=== PATIENT | male | born 1945 | race Caucasian/White ===

== ENCOUNTER 2016-12-16 13:03 | Inpatient (IN) ==
[2016-12-16] MEDS ORDERED: Aspirin 325 MG TABLET PO ONE (13:11)
--- NOTE | 2016-12-16 13:14 | Emergency Department Note ---
Disposition Clinical Impression: NSTEMI, initial episode of care, Dizziness Disposition: Admitted As Inpatient Condition: Fair Time of Disposition: 14:20 General Adult HPI - General Chief complaint: ED Arrhythmia/Palpitations Stated complaint: vertigo/afib/elevated Trop Time Seen by Provider: 12/16/16 13:10 Source: patient Mode of arrival: EMS Limitations: no limitations Nursing Notes Reviewed: Yes Vital Signs Reviewed: Yes - History of Present Illness HPI Narrative: 71-year-old male with history of hypertension, hyperlipidemia, diabetes, arrives to [facility] emergency department complaining of vertigo-like symptoms that have been ongoing for roughly 1 week. The patient states this is intermittent. The patient states he has had a history of this in the past. The patient denies any chest pain but does admit to some dyspnea on exertion. The patient is a [facility] patient and went to the urgent care at the [facility] earlier today where he was evaluated. The patient received a head CT which revealed no acute findings but there were some old lacunar infarcts that were noted as well as her sinus disease. In addition the patient had a cardiac workup which revealed an elevated troponin. The patient again continues to deny any chest pain but does admit to dyspnea on exertion. The patient is resting comfortably in the bed at this time. He was not given any aspirin today. We will dose him with a 325 mg dose aspirin. We will speak to cardiology as well. EKG from the [facility] demonstrates atrial fibrillation without any ST elevation or ST depression but we will repeat this as well. Patient agrees to plan. Onset (ago): week(s) (1) Pain Scale: 0 Improves with: nothing Worsens with: movement (of head back and forth as well as sitting up and laying down.) Associated symptoms: Reports: shortness of breath Treatments Prior to Arrival: none - Related Data Allergies Allergy/AdvReac Type Severity Reaction Status Date / Time No Known Allergies Allergy Verified 12/16/16 13:07 All systems ED: reviewed and negative except as stated. Constitutional: Denies: fever, chills, weakness, weight change Cardiovascular: Reports: dyspnea on exertion. Denies: chest pain, palpitations , edema, syncope Respiratory: Denies: cough, dyspnea, wheezes, hemoptysis, sputum production Gastrointestinal: Denies: abdominal pain, nausea, vomiting, diarrhea, constipation, hematemesis, melena, hematochezia Musculoskeletal: Denies: back pain, neck pain, arthralgia, myalgia Neurological: Reports: vertigo. Denies: headache, weakness, numbness, paresthesias, confusion, abnormal gait Past Medical History - Past Medical History Attestation: Yes The following information was validated with the patient. Source: patient Medical history: Reports: diabetes, hyperlipidemia, hypertension Surgical history: Reports: non-contributory - Social History Smoking Status: Smoker, status unknown Alcohol use: Reports: none Drug use: Reports: none Physical Exam - General Limitations: no limitations General appearance: alert, in no apparent distress - Eye Eye exam: Present: normal appearance, PERRL, EOMI. Absent: nystagmus - ENT ENT exam: normal exam, normal oropharynx, mucous membranes moist - Neck Neck exam: Present: normal inspection, full ROM, trachea midline - Chest Chest inspection: Present: normal inspection, symmetric chest wall rise - Respiratory Respiratory exam: Present: normal lung sounds bilaterally - Cardiovascular Cardiovascular exam: Present: regular rate, irregular rhythm, normal heart sounds - Abdominal Exam Abdominal exam: Present: soft, Non-Tender. Absent: tenderness, distention, guarding, rebound, rigidity - Extremities Exam Extremities exam: Present: full ROM, pedal edema (Trace with venous stasis changes). Absent: tenderness - Neurological Exam Neurological exam: Present: alert, oriented X3 - Skin Skin exam: Present: warm, dry, intact, normal color, other (Scar on lumbar spine from previous injury) Course - Consultations Consultation #1: We spoke with cardiology and they agreed that the patient will be admitted to the hospital. She recommended administration of aspirin. Time: 13:39 Vital Signs Temperature 98.1 F 12/16/16 13:07 Pulse Rate 98 12/16/16 13:07 Respiratory Rate 12/16/16 13:07 Blood Pressure 139/86 12/16/16 13:07 O2 Sat by Pulse Oximetry 97 12/16/16 13:07 Temperature 98.1 F 12/16/16 13:07 Pulse Rate 100 12/16/16 13:47 Respiratory Rate 20 12/16/16 15:42 Blood Pressure 137/96 12/16/16 15:42 O2 Sat by Pulse Oximetry 96 12/16/16 13:47 Oxygen Delivery Oxygen Delivery Room Air Medical Decision Making - MDM Narrative Medical decision making narrative: Patient's EKG demonstrates no ST elevation or depression. The patient's troponin is elevated at 0.35. After speaking with cardiology nurse practitioner recommended holding any heparin or Plavix at this time given the patient's INR. The patient agrees to be admitted to the hospital. We will page the hospitalist at this time. Patient's vertigo is likely associated with a peripheral neuropathy. The patient had an episode like this in the past roughly 6 months ago where he was prescribed meclizine. The patient does take his meclizine does help but given the patient's symptoms are when he lays up and sits back this is likely associated with either peripheral neuropathy or a cardiac origin. Head CT was negative on examination at the [facility]. We will admit the patient to the hospitalist at this time. Accepted by Dr. Rod. - Medical Records Medical records reviewed: Yes I reviewed the patient's medical records. - Lab Data Lab results reviewed: Yes I reviewed the patient's lab results. Result diagrams: 12/16/16 13:21 Lab Results 12/16/16 12/16/16 12/16/16 Range/Units 13:16 13:21 13:21 Sodium 139 (136-145) mEq/L Potassium 4.2 (3.5-4.5) mEq/L Chloride 106 (98-109) mEq/L Carbon Dioxide 22 (19-29) mEq/L BUN 22 (8-26) mg/dL Creatinine 1.15 (0.72-1.25) mg/dL Est GFR ( Amer) > 60 (> 60) Est GFR (Non-Af Amer) > 60 (> 60) BUN/Creatinine Ratio 19 (6-26) Glucose 98 (70-99) mg/dL Calculated Osmolality 291 (280-300) Calcium 9.3 (8.6-10.8) mg/dL Troponin I 0.35 H* (0-0.03) ng/mL Urine Color Yellow (Yellow) Urine Clarity Clear (Clear) Urine pH 7.0 (5.0-8.0) pH Units Ur Specific [place] 1.015 (1.010-1.025) Urine Protein Negative (Neg-Trace) mg/dL Urine Glucose (UA) Normal (Normal) mg/dL Urine Ketones Negative (Negative) mg/dL Urine Blood Negative (Negative) Urine Nitrite Negative (Negative) Urine Bilirubin Negative (Negative) Urine Urobilinogen Normal (Normal) mg/dL Ur Leukocyte Esterase Moderate H (Negative) Urine Microscopic RBC 0-3 (0-3) per hpf Urine Microscopic WBC 5-15 H (0-3) per hpf Ur Squamous Epith Cells Moderate H (None-Few) per lpf Urine Bacteria None Seen (None-Few) per hpf Hyaline Casts None Seen (None-Few) per lpf Ur Culture Indicated? YES A (NO) - EKG Data EKG #1 EKG attestation: Yes I reviewed and interpreted this EKG. EKG results narrative: Heart rate 96 bpm. QTC 398 ms. Normal axis. Atrial fibrillation with no ST elevation or ST depression noted. EKG similar in appearance to EKG from the [facility]. No acute changes. Attestation Statement - Attestation Attestation: I examined this patient and my medical decision-making was reviewed with the Resident Physician, I agree with the documented findings, disposition and treatment plan as described except to the extent set forth below. Patient is a 71-year-old male with a history of A. fib and vertigo who presents to the emergency department today sent from the [facility] after he presented there earlier today with complaints of recurrent vertigo. Patient was worked up at the [facility] with [facility] head which was unremarkable baseline labs which were unremarkable but did have an elevated troponin. Patient had no time has complained of chest pain pressure or heaviness but has mentioned occasional exertional dyspnea. Patient appears comfortable on arrival to the ED here and denies any symptoms currently. Patient does have some mild dizziness worse with head turning or positional change but states very similar to episodes he has had and the past for which she has been prescribed meclizine. I agree patient's physical exam findings as documented. Patient's EKG without acute ischemic change no change from prior EKGs. Chest x-ray the [facility] was unremarkable. We did not repeat that here at our facility. Did repeat basic metabolic panel as well as a troponin is significantly elevated today. Spoke with cardiology and cardiology nurse practitioner came down and evaluated the patient in the ED. They requested we hold heparin at this time since he is therapeutic on his anticoagulants. They also requested we hold Plavix at this time. Patient was administered aspirin on arrival. He is asymptomatic at this time and will be admitted for further evaluation of elevated troponin.
[2016-12-16 13:45] LABS: BUN/Creatinine Ratio 19 (6-26); Blood Urea Nitrogen 22 mg/dL (8-26); Calcium 9.3 mg/dL (8.6-10.8); Carbon Dioxide 22 mEq/L (19-29); Chloride 106 mEq/L (98-109); Glucose 98 mg/dL (70-99); Osmolality,Calculated 291 (280-300); Potassium 4.2 mEq/L (3.5-4.5); Sodium 139 mEq/L (136-145); eGFR For African Americans > 60 (> 60); eGFR For Non-African Americans > 60 (> 60)
[2016-12-16 15:27] LABS: Bilirubin,Urine Negative (Negative); Blood,Urine Negative (Negative); Clarity,Urine Clear (Clear); Color,Urine Yellow (Yellow); Glucose,Urine (UA) Normal (Normal); Ketones,Urine Negative (Negative); Leukocyte Esterase,Urine Moderate (Negative); Nitrite,Urine Negative (Negative); Protein,Urine Negative (Neg-Trace); Specific Gravity,Urine 1.015 (1.010-1.025); Urobilinogen,Urine Normal (Normal)
[2016-12-16 15:29] LABS: Bacteria,Urine None Seen per hpf (None-Few); Hyaline Casts,Urine None Seen per lpf (None-Few); RBC,Urine 0-3 per hpf (0-3); Squamous Epithelial Cell,Urine Moderate per lpf (None-Few)
[2016-12-16] MEDS ORDERED: Acetaminophen 325 MG TABLET PO PRN (15:35)
[2016-12-16] MEDS ORDERED: Naloxone 0.4 MG/ML INJ IVP PRN (15:35)
[2016-12-16] MEDS ORDERED: Dextrose Gel 15 GM PO PRN ×2 (15:43)
[2016-12-16] MEDS ORDERED: D5% in Water 1,000 ML IVC PRN (15:43)
[2016-12-16] MEDS ORDERED: *HR* Dextrose 50 % in Water (Syg) 50 ML SYRINGE IVP PRN (15:43)
--- NOTE | 2016-12-16 16:14 | Cardiology Consult Note ---
Date of Encounter: 12/16/16 Time of Encounter: 14:00 Assessment and Plan (1) Elevated troponin Current Visit: Yes Status: Acute First troponin at [facility]- 0.35. Unclear significance at this time. EKG with no acute ischemic findings. He does appear to have mild fluid overload on exam and admits to dyspnea on exertion. Denies history of CHF. Reports normal echo in July. Agree with IV lasix. Check BNP. Denies chest pain. Check TTE. Hold coumadin for possible ischemic evaluation. INR 2.8. Heparin gtt not indicated. Continue asa, statin, and bb. Lasix ordered by primary team. (2) Dizziness Current Visit: Yes Status: Acute Diagnosed with vertigo in relation to sinus infection. Continue supportive care. Will check TTE and monitor telemetry to assess for cardiac cause. HR currently in the 70's atrial fibrillation. (3) Atrial fibrillation Current Visit: Yes Status: Acute History of atrial fibrillation diagnosed five years ago. Likely chronic. Continue rate control. On coumadin for anticoagulation. Hold for possible ischemic evaluation with [facility]. Qualifiers: Atrial fibrillation type: chronic Qualified Code(s): I48.2 - Chronic atrial fibrillation Discussion w patient/family: The assessment and plan as outlined above was discussed with the patient and/or family members who expressed understanding and agreement. All questions were answered. Thank you for involving us in the care of your patient. Please call with any questions. History of Present Illness Consult date: 12/15/16 Requesting physician: Caden Wolf Consult reason: Elevated troponin Chief complaint: Dizziness History of present illness: Mr. Ramsay is a 71 year old male with a history of atrial fibrillation on coumadin, HTN, HLD, DM type II, and morbid obesity who presented to the [facility] with increasing dizziness and feeling like he would fall over the weekend. He had to use his walker to prevent falls.He was sent to [facility] from the [facility] when he was reported to have elevated troponin. He reports being diagnosed with vertigo in July. He had a sinus infection at that time. He reports continuing to have sinus trouble that he relates to his c- pap machine not being cleaned properly. He denies chest pain or palpitations. Denies SOB, weight gain, or orthopnea. Admits to intermittent BLE edema. He follows with Dr. Scott in [facility]. Past Med Surg Social Fam HX - Past Medical History Medical history: atrial fibrillation, diabetes, hyperlipidemia, hypertension Psychiatric history: anxiety - Past Surgical History Surgical History: non-contributory - Social History Smoking Status: Smoker, status unknown Smokeless Tobacco Status: No Alcohol use: none Drug use: none - Family History Mother Living Status: Age at : 75 Cause of : breast cancer Hx Family Cancer: Yes Father Living Status: Age at : 64 Hx Family Cancer: Yes Medications and Allergies Allopurinol [Zyloprim 100 MG] 100 mg PO DAILY 12/16/16 [History] Amlodipine Besylate 10 mg PO DAILY 12/16/16 [History] Aspirin [Lo-Dose Aspirin EC] 81 mg PO DAILY 12/16/16 [History] Furosemide [Lasix] 40 mg PO DAILY 12/16/16 [History] Gluc Johnson Dipo Ch/Mihai Johnson/C/Emiliano [Glucosamine Chondroitin Caplet] 1 tab PO DAILY 12/16/16 [History] Insulin Glargine [Lantus] 20 unit SQ QPM 12/16/16 [History] Lisinopril [Zestril] 20 mg PO BID 12/16/16 [History] Loratadine [Allergy Relief] 10 mg PO DAILY 12/16/16 [History] Metoprolol [Lopressor] 100 mg PO BID 12/16/16 [History] Mometasone Furoate [Nasonex] 2 spr NS DAILY 12/16/16 [History] Multivit-Min/FA/Lycopen/Lutein [A Thru Z Select Multivit Tab] 1 tab PO DAILY [History] Potassium Chloride [Klor-Con 10] 20 meq PO BID 12/16/16 [History] Pravastatin Sodium [Pravachol] 20 mg PO DAILY 12/16/16 [History] Ranitidine HCl [Zantac] 300 mg PO QPM 12/16/16 [History] Sildenafil Citrate [Viagra] 50 mg PO AD PRN 12/16/16 [History] Terazosin [Hytrin] 5 mg PO HS 12/16/16 [History] Testosterone Cypionate [Depo-Testosterone] 200 mg IM Q2W 12/16/16 [History] Warfarin [Coumadin] 5 mg PO [id number] 12/16/16 [History] Warfarin [Coumadin] 7.5 mg PO TH 12/16/16 [History] glipiZIDE [Glipizide] 10 mg PO DAILY 12/16/16 [History] metFORMIN [Glucophage] 500 mg PO BIDWM 12/16/16 [History] 3 Allergy/AdvReac Type Severity Reaction Status Date / Time No Known Allergies Allergy Verified 12/16/16 13:07 All Systems Review: A 10-system review of systems was performed and is negative for pertinent findings except as documented above in the HPI. Physical Examination Vital Signs Temp Pulse Resp BP Pulse Ox 12/16/16 15:42 20 137/96 12/16/16 13:47 100 20 100/95 96 12/16/16 13:35 97 12/16/16 13:30 93 20 131/93 96 12/16/16 13:07 98.1 F 98 20 139/86 97 Intake and Output 12/16/16 12/16/16 12/16/16 07:59 15:59 23:59 Other: Weight 133.81 kg Patient Weight 12/16/16 23:59 Weight 133.81 kg General: Conversant, No Apparent Distress, Other (obese male) HEENT: Atraumatic, Normocephaly, Mucus Membranes Moist Neck: No JVD, Normal carotid pulses Cardiac: Other (Irregularly irregular) Lungs: Normal Breath Sounds, No Wheeze, Rales, Rhonchi Neuro: Alert and responsive, No focal deficits noted Abdomen: Soft, Non-Tender Skin: No rashes noted on visualized skin Musculoskeletal: No Chest Wall Tenderness Extremities: No Clubbing, No Cyanosis, Normal Pulses, Other (1+ BLE ankle edema) Results 12/16/16 13:21 - Imaging and Cardiology Echo: pending - EKG Interpretation EKG results cardiology: personally reviewed (Atrial fibrillation, HR 96 bpm, no acute ST changes.) Consult Discharge Plan - Plan [facility]errals: [facility] [Primary Care Provider[facility] -
--- NOTE | 2016-12-16 16:14 | Internal Med History&Physical ---
<Mikaela Stephen - Last Filed: 12/16/16 16:11> Date of Encounter: 12/16/16 Time of Encounter: 16:11 Assessment and Plan (1) NSTEMI, initial episode of care Current visit: Yes Status: Acute Patient with Troponin of 0.35 in ED. Patient denies any chest pain, but does endorse some shortness of breath on exertion. EKG shows afib with no ST elevations or depressions. Patient is anticoagulated on coumadin and INR is therapeutic. Cardiology was consulted, no need for heparin as INR is therapeutic. Elevated troponin likely demand ischemia related to suspected heart failure and/ or afib. Continuous dealer card room serial troponins lipid panel with morning labs cardiology consulted echocardiogram (2) Dizziness Current visit: Yes Status: Acute Patient complains of dizziness on and off for the last week. He has been taking meclizine without relief. Dizziness may be vertigo, or related to cardiac or neurological cause. CT of head at [facility] revealed no acute abnormality. Patient has severe claustrophobia and would prefer to do OPEN MRI as an outpatient. Continuous dealer card room echocardiogram meclizine PRN. (3) CHF (congestive heart failure) Current visit: Yes Status: Suspected Patient denies history of CHF, but is on lasix 40mg PO daily at home. He has dependant edema with +2 pitting in BLE. Lungs are clear and he denies any orthopnea. Suspect elevated troponin is demand ischemia related to heart failure. Will get daily weights, I/Os, cardiac diet. Echocardiogram. Continue home dose of lasix. Qualifiers: Congestive heart failure type: unspecified congestive heart failure type Congestive heart failure chronicity: unspecified congestive heart failure chronicity Qualified Code(s): I50.9 - Heart failure, unspecified (4) Atrial fibrillation Current visit: Yes Status: Acute Patient with chronic afib on metoprolol and terazosin for rate control and coumadin for anticoagulation. Continue home doses of medications. Qualifiers: Atrial fibrillation type: chronic Qualified Code(s): I48.2 - Chronic atrial fibrillation (5) Anticoagulated on Coumadin Current visit: Yes Status: Acute INR is therapeutic at 2.8. Check PT/INR/PTT daily. Pharmacy to dose warfarin. (6) Sleep apnea Current visit: Yes Status: Acute Respiratory therapy consulted for CPAP. Qualifiers: Sleep apnea type: unspecified type Qualified Code(s): G47.30 - Sleep apnea , unspecified (7) Type 2 diabetes mellitus Current visit: Yes Status: Acute diabetic, heart healthy diet hold metformin and glyburide. check Hgb A1c check blood sugars ACHS and q6hr while NPO sliding scale correction dose ACHS and Q6hr while npo Give half normal long acting insulin as patient is NPO after midnight. 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 Internal Medicine - H&P: HPI Chief complaint: dizziness Admitted From: Emergency Dept Plans for Post Hospital Care: Home History of present illness: Mr. Ramsay is a 71 year old male with hypertension, hyperlipidemia, type 2 diabetes, sleep apnea, atrial fibrillation on Coumadin presented to the emergency department today from the [facility] with elevated troponin. Patient had presented to the [facility] clinic with complaints of vertigo. She had been taking meclizine without much improvement over the last week. [facility] did not evaluation included a head CT which was negative, troponin was found to be elevated and he was sent over to [place] ED. Patient reports dizziness, with the room spinning, but denies lightheadedness. He denies any chest pain, palpitations, shortness of breath at rest. He does endorse shortness of breath on exertion. He reports bilateral lower extremity swelling related to sitting position. He denies any nausea, vomiting, abdominal pain, fever, chills or sweats. Evaluation in emergency department included a troponin which was elevated at 0.35. INR was found to be therapeutic at 2.8. EKG showed atrial fibrillation with no ST elevations or depressions. On exam, patient alert and oriented, in no acute distress. Heart has irregular rhythm rate in the 90s to low 100s. Lungs are clear bilaterally to auscultation. Abdomen was soft, nontender with positive bowel sounds. Bilateral shotty +2 pitting edema. Past Med Surg Social Fam HX - Past Medical History Medical history: atrial fibrillation, COPD, diabetes, hyperlipidemia, hypertension, TIA Psychiatric history: anxiety - Past Surgical History Surgical History: cholecystectomy, orthopedic, other - Social History Smoking Status: Former smoker Smokeless Tobacco Status: No Alcohol use: heavy (2-3 glasses of wine per night) Drug use: none - Family History Mother Living Status: Age at : 75 Cause of : breast cancer Hx Family Cancer: Yes Father Living Status: Age at : 64 Hx Family Cancer: Yes Internal Medicine - H&P: Meds Allopurinol [Zyloprim 100 MG] 100 mg PO DAILY 12/16/16 [History] Amlodipine Besylate 10 mg PO DAILY 12/16/16 [History] Aspirin [Lo-Dose Aspirin EC] 81 mg PO DAILY 12/16/16 [History] Furosemide [Lasix] 40 mg PO DAILY 12/16/16 [History] Gluc Johnson Dipo Ch/Mihai Johnson/C/Emiliano [Glucosamine Chondroitin Caplet] 1 tab PO DAILY 12/16/16 [History] Insulin Glargine [Lantus] 20 unit SQ QPM 12/16/16 [History] Lisinopril [Zestril] 20 mg PO BID 12/16/16 [History] Loratadine [Allergy Relief] 10 mg PO DAILY 12/16/16 [History] Metoprolol [Lopressor] 100 mg PO BID 12/16/16 [History] Mometasone Furoate [Nasonex] 2 spr NS DAILY 12/16/16 [History] Multivit-Min/FA/Lycopen/Lutein [A Thru Z Select Multivit Tab] 1 tab PO DAILY [History] Potassium Chloride [Klor-Con 10] 20 meq PO BID 12/16/16 [History] Pravastatin Sodium [Pravachol] 20 mg PO DAILY 12/16/16 [History] Ranitidine HCl [Zantac] 300 mg PO QPM 12/16/16 [History] Sildenafil Citrate [Viagra] 50 mg PO AD PRN 12/16/16 [History] Terazosin [Hytrin] 5 mg PO HS 12/16/16 [History] Testosterone Cypionate [Depo-Testosterone] 200 mg IM Q2W 12/16/16 [History] Warfarin [Coumadin] 5 mg PO SUMOTUWEFRSA 12/16/16 [History] Warfarin [Coumadin] 7.5 mg PO TH 12/16/16 [History] glipiZIDE [Glipizide] 10 mg PO DAILY 12/16/16 [History] metFORMIN [Glucophage] 500 mg PO BIDWM 12/16/16 [History] 3 Allergy/AdvReac Type Severity Reaction Status Date / Time No Known Allergies Allergy Verified 12/16/16 13:07 All Systems PM: A 10-system review of systems was performed and is negative for pertinent findings except as documented above in the HPI. - Constitutional Constitutional: no chills, no fever(s), no night sweats - EENT Eyes: no change in vision, no discharge, no pain, no photophobia Ears: no ear discharge, no ear pain, no tinnitus Nose, mouth and throat: no dysphagia, no nasal discharge, no neck pain, no sore throat - Cardiovascular Cardiovascular ROS IM: dyspnea on exertion, no chest pain, no diaphoresis, no dyspnea, no lightheadedness, no palpitations, no syncope - Respiratory Respiratory: dyspnea on exertion, no cough, no dyspnea, no wheezing, no excessive phlegm production - Gastrointestinal Gastrointestinal: no abdominal pain, no diarrhea, no hematemesis, no hematochezia, no melena, no nausea, no vomiting - Musculoskeletal Musculoskeletal ROS IM: no numbness, no tingling - Integumentary Integumentary IM: no rash, no unusual bruising - Neurological Neurological ROS: dizziness, no confusion, no convulsions, no focal weakness, no numbness, no tingling, no tremor(s) - Hematologic/Lymphatic Hematologic/Lymphatic: no easy bruising - Constitutional Vitals: Temp Pulse Resp BP Pulse Ox 98.1 F 100 20 137/96 96 12/16/16 13:07 12/16/16 13:47 12/16/16 15:42 12/16/16 15:42 12/16/16 13:47 General appearance: Present: A&O X 3, pleasant, no acute distress - Head Head exam: Present: atraumatic, normocephalic - Eye Eye exam: Present: PERRL, conjuntiva pink, sclera anicteric Pupils: Present: PERRL - Neck Neck exam general surgery: Present: supple, trachea midline. Absent: lymphadenopathy - Respiratory Respiratory exam: Present: CTAB. Absent: accessory muscle use, rales, rhonchi, wheezes - Cardiovascular Cardiovascular exam: Present: irregular rhythm, +S1, +S2, tachycardia. Absent: diastolic murmur, gallop, rubs, systolic murmur - GI/Abdominal GI/Abdominal exam: Present: normal bowel sounds, soft, no peritoneal signs. Absent: distended, tenderness - Extremities Exam Extremities exam: Present: pedal edema (+2 BLE edema), warm, radial pulses palpable and symmetrical. Absent: calf tenderness, cyanotic - Neurological Exam Neurological exam: Present: CN II-XII intact, oriented X3, no focal deficits. Absent: pronater drift, facial droop, speech deficit - Skin Skin exam: Present: dry, intact Internal Med - H&P Results - Labs CBC & Chem 7: 12/16/16 13:21 <Donna Rod - Last Filed: 12/16/16 19:01> Date of Encounter: 12/16/16 Internal Medicine - H&P: HPI History of present illness: Mr. Ramsay is a 71 year old male All Systems PM: A 10-system review of systems was performed and is negative for pertinent findings except as documented above in the HPI. - Constitutional Vitals: Temp Pulse Resp BP Pulse Ox 97.6 F 109 18 147/94 96 12/16/16 17:29 12/16/16 17:29 12/16/16 17:29 12/16/16 17:29 12/16/16 18:06 Internal Med - H&P Results - Labs CBC & Chem 7: 12/16/16 13:21 - Attending Attestation I have personally performed a face to face evaluation on this patient and I discussed the assessment and plan with the nurse practitioner. I have reviewed and agree with the documented care plan. History and Exam by me shows: Mr. Ramsay is a 71 year old male with hypertension, hyperlipidemia, type 2 diabetes, sleep apnea, atrial fibrillation on Coumadin presented to the emergency department today from the [facility] clinic with elevated troponin. Patient had presented to the [facility] clinic with complaints of vertigo. She had been taking meclizine without much improvement over the last week. [facility] did not evaluation included a head CT which was negative, troponin was found to be elevated and he was sent over to [place] ED. Patient reports dizziness, with the room spinning, but denies lightheadedness. He denies any chest pain, palpitations, shortness of breath at rest. He does endorse shortness of breath on exertion. He reports bilateral lower extremity swelling related to sitting position. He denies any nausea, vomiting, abdominal pain, fever, chills or sweats. Evaluation in emergency department included a troponin which was elevated at 0.35. INR was found to be therapeutic at 2.8. EKG showed atrial fibrillation with no ST elevations or depressions Gen: A, A, O x3 Chest: diminished BS, mild wheezing, no crackles, no rales Heart ; S1S2 + Ext: Traceable edema a/p 1. Acute NSTEMI - unclear etiology mostly demand ischemia.. he might have mild heart failure exacerbation depending on his symptoms will f/u on 2 D Echo cont home dose PO lasix for now trend on Trop Card consulted
[2016-12-16 16:52] LABS: Hemoglobin A1C 6.3 %
[2016-12-16] MEDS: Furosemide 40 MG TABLET PO SCH (17:30)
[2016-12-16] MEDS: Insulin LISPRO 300 UNITS/3 ML VIAL SQ SCH ×2 (17:31→23:40)
[2016-12-16] MEDS ORDERED: Famotidine 20 MG TABLET PO SCH (18:00)
[2016-12-16] MEDS ORDERED: Warfarin perPT PO PRN (18:00)
[2016-12-16] MEDS ORDERED: Insulin DETEMIR 100 UNIT/ML X5UNITS SQ SCH (21:00)
[2016-12-16] MEDS ORDERED: Insulin LISPRO 300 UNITS/3 ML VIAL SQ SCH (21:00)
[2016-12-16] MEDS: Metoprolol 100 MG TABLET PO SCH (21:54)
[2016-12-16] MEDS: Lisinopril 20 MG TABLET PO SCH (21:54)
[2016-12-17 03:10] LABS: Basophils % 0.5 %; Eosinophils # 0.1 K/mcL (0.0-0.6); Eosinophils % 0.6 %; Hematocrit 48.1 % (37.5-50.1); Hemoglobin 15.8 g/dL (12.9-16.9); Immature Granulocytes % 0.2 % (0-4); Lymphocytes # 1.3 K/mcL (0.6-4.6); Lymphocytes % 16.2 %; Mean Corpuscular HGB Conc 32.8 g/dL (31.6-35.5); Mean Corpuscular Hemoglobin 30.4 pg (28.0-33.3); Mean Corpuscular Volume 92.7 fL (83.0-100.0); Mean Platelet Volume 10.5 fL (9.4-12.4); Monocytes # 0.8 K/mcL (0.0-1.3); Monocytes % 10.1 %; Neutrophils # 5.8 K/mcL (1.6-8.9); Platelet Count 124 K/mcL (140-400); Red Blood Count 5.19 M/mcL (4.19-5.50); Red Cell Distribution Width 17.5 % (11.5-14.5); Segmented Neutrophils % 72.4 %
[2016-12-17 03:14] LABS: INR 3.1; Prothrombin Time 33.7 Seconds (9.4-12.1)
[2016-12-17 03:16] LABS: Activated Partial Thrombo Time 47.4 Seconds (26.0-36.0)
[2016-12-17 03:26] LABS: BUN/Creatinine Ratio 17 (6-26); Blood Urea Nitrogen 19 mg/dL (8-26); Calcium 8.9 mg/dL (8.6-10.8); Carbon Dioxide 22 mEq/L (19-29); Chloride 106 mEq/L (98-109); Chol/HDL Ratio 3.6 (0-4.9); Cholesterol 114 mg/dL (< 200); Glucose 97 mg/dL (70-99); HDL Cholesterol 32 mg/dL (40-59); LDL Cholesterol,Calculated 53 mg/dL (0-99); Osmolality,Calculated 290 (280-300); Potassium 4.2 mEq/L (3.5-4.5); Sodium 139 mEq/L (136-145); Triglycerides 146 mg/dL (< 150); eGFR For African Americans > 60 (> 60); eGFR For Non-African Americans > 60 (> 60)
[2016-12-17] MEDS: Insulin LISPRO 300 UNITS/3 ML VIAL SQ SCH ×3 (05:29→11:52)
[2016-12-17] MEDS: Metoprolol 100 MG TABLET PO SCH (08:02)
[2016-12-17] MEDS: Furosemide 40 MG TABLET PO SCH (08:02)
[2016-12-17] MEDS: Lisinopril 20 MG TABLET PO SCH (08:02)
[2016-12-17] MEDS ORDERED: amLODIPine 5 MG TABLET PO SCH (09:00)
[2016-12-17] MEDS ORDERED: Aspirin Enteric Coated 81 MG Tablet PO SCH (09:00)
[2016-12-17] MEDS ORDERED: Fluticasone Propionate Nasal 50 MCG/SPRAY BOTTLE NS SCH (09:00)
[2016-12-17] MEDS ORDERED: Loratadine 10 MG TABLET PO SCH (09:00)
--- NOTE | 2016-12-17 09:58 | Internal Med Progress Note ---
Date of Encounter: 12/17/16 Time of Encounter: 09:57 - Subjective Interval history: No acute events overnight. - Constitutional Vitals: Temp Pulse Resp BP Pulse Ox 98.1 F 110 19 141/87 94 12/17/16 06:59 12/17/16 06:59 12/17/16 06:59 12/17/16 06:59 12/17/16 06:59 General appearance: Present: A&O X 3, pleasant, no acute distress Internal Medicine: Result - Labs CBC & Chem 7: 12/17/16 02:13 12/17/16 02:13 Labs: Short CBC 12/17/16 Range/Units 02:13 WBC 8.0 (4.3-11.1) K/mcL Hgb 15.8 (12.9-16.9) g/dL Hct 48.1 (37.5-50.1) % Plt Count 124 L (140-400) K/mcL Neutrophils # 5.8 (1.6-8.9) K/mcL BMP 12/17/16 02:13 Sodium 139 Potassium 4.2 Chloride 106 Carbon Dioxide 22 BUN 19 Creatinine 1.14 Glucose 97 Calcium 8.9 Cardiac Enzymes 12/16/16 12/17/16 Range/Units 22:25 02:13 Troponin I 0.41 H* 0.44 H* (0-0.03) ng/mL - ABG Interpretation ABG results: PT/INR, D-dimer PT 33.7 Seconds (9.4-12.1) H 12/17/16 02:13 - Impressions Impressions Chest X-Ray 12/16/16 17:14 IMPRESSION: Mild cardiomegaly with mild left lung base atelectasis. D/ / Adam Valencia MD / Adam Valencia MD Interpreting Provider: Adam Valencia MD - VTE Documentation of Mechanical Device: Graduated compression elastic hosiery Consult Discharge Plan - Plan [facility]errals: [facility] [Primary Care Provider] -
--- NOTE | 2016-12-17 10:47 | Cardiology Progress Note ---
Date of Encounter: 12/17/16 Time of Encounter: 10:45 Assessment and Plan (1) Elevated troponin Current Visit: Yes Status: Acute Elevated troponin, 0.35, 0.41, 0.44. NSTEMI. EKG with no acute ischemic findings. BNP only 130. No CHF on CXR. Check TTE. Reports history of valvular heart disease. Follows with Dr. Scott in [place]. Heparin gtt not indicated, INR 3.1. He denies chest pain or anginal symptoms. [facility] medical management discussed. He declines LHC. Continue asa, statin, and bb. Lasix ordered by primary team for peripheral edema. Not a candidate for cardiac rehab in the setting of medical management. Further recommendation after TTE. (2) Dizziness Current Visit: Yes Status: Acute Diagnosed with vertigo in relation to sinus infection. Continue supportive care. Will check TTE and monitor telemetry to assess for cardiac cause. HR currently in the 70's atrial fibrillation. Avg HR 97 bpm. No significant bradycardia or pauses. (3) Atrial fibrillation Current Visit: Yes Status: Acute History of atrial fibrillation diagnosed five years ago. Likely chronic. Continue rate control. On coumadin for anticoagulation. Will resume today if he continues to decline LHC after TTE. Qualifiers: Atrial fibrillation type: chronic Qualified Code(s): I48.2 - Chronic atrial fibrillation Discussion w patient/family: The assessment and plan as outlined above was discussed with the patient and/or family members who expressed understanding and agreement. All questions were answered. Thank you for involving us in the care of your patient. Please call with any questions. Subjective Principal diagnosis: elevated troponin, dizziness Interval history: Continues to deny chest pain. Mild dizziness noted with position change. Objective Vital Signs, Last 4 Hours Temp Pulse Resp BP Pulse Ox 12/17/16 06:59 98.1 F 110 19 141/87 94 General: Conversant, No Apparent Distress HEENT: Atraumatic, Normocephaly, Mucus Membranes Moist Neck: No JVD, Normal carotid pulses Cardiac: Reg Rate and Rhythm, Normal S1 and S2, No Murmur Lungs: Normal Breath Sounds, No Wheeze, Rales, Rhonchi Neuro: Alert and responsive, No focal deficits noted Abdomen: Soft, Non-Tender Skin: No rashes noted on visualized skin Musculoskeletal: No Chest Wall Tenderness Extremities: No Clubbing, No Cyanosis, Normal Pulses, Other (1 + BLE pitting edema) Results 12/17/16 02:13 12/17/16 02:13 Lab Results 12/16/16 12/17/16 12/17/16 22:25 02:13 02:13 WBC 8.0 Hgb 15.8 Hct 48.1 Plt Count 124 L INR APTT Sodium Potassium Chloride Carbon Dioxide BUN Creatinine Glucose Calcium Troponin I 0.41 H* 0.44 H* 12/17/16 12/17/16 02:13 02:13 WBC Hgb Hct Plt Count INR 3.1 APTT 47.4 H Sodium 139 Potassium 4.2 Chloride 106 Carbon Dioxide 22 BUN 19 Creatinine 1.14 Glucose 97 Calcium 8.9 Troponin I Chest X-Ray 12/16/16 17:14 IMPRESSION: Mild cardiomegaly with mild left lung base atelectasis. D/ / Adam Valencia MD / Adam Valencia MD Interpreting Provider: Adam Valencia MD - Imaging and Cardiology Echo: pending - EKG Interpretation EKG results cardiology: personally reviewed - VTE Documentation of Mechanical Device: Graduated compression elastic hosiery Consult Discharge Plan - Plan Referrals: [facility] [Primary Care Provider] -
--- NOTE | 2016-12-17 14:01 | Electrocardiograph Report ---
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
[2016-12-17 16:01] VITALS: BP 164/89
[2016-12-17] MEDS ORDERED: Insulin LISPRO 300 UNITS/3 ML VIAL SQ SCH ×2 (16:30→21:00)
[2016-12-17] MEDS ORDERED: Metoprolol 100 MG TABLET PO SCH (16:30)
--- NOTE | 2016-12-17 16:39 | Discharge Summary ---
<JimboBeth - Last Filed: 12/17/16 16:31> Date of Encounter: 12/17/16 Time of Encounter: 16:31 - Discharge Diagnosis (1) Elevated troponin Priority: Primary Status: Acute (2) Dizziness Priority: Primary Status: Acute (3) Atrial fibrillation Priority: Secondary Status: Chronic Qualifiers: Atrial fibrillation type: chronic Qualified Code(s): I48.2 - Chronic atrial fibrillation (4) Sleep apnea Priority: Secondary Status: Chronic Qualifiers: Sleep apnea type: unspecified type Qualified Code(s): G47.30 - Sleep apnea , unspecified (5) Hypertension Priority: Secondary Status: Chronic Qualifiers: Hypertension type: essential hypertension Qualified Code(s): I10 - Essential (primary) hypertension - Discharge Medications Home Medications: Allopurinol [Zyloprim 100 MG] 100 mg PO DAILY 12/16/16 [History] Amlodipine Besylate 10 mg PO DAILY 12/16/16 [History] Aspirin [Lo-Dose Aspirin EC] 81 mg PO DAILY 12/16/16 [History] Furosemide [Lasix] 40 mg PO DAILY 12/16/16 [History] Gluc Johnson Dipo Ch/Mihai Johnson/C/Emiliano [Glucosamine Chondroitin Caplet] 1 tab PO DAILY 12/16/16 [History] Insulin Glargine [Lantus] 20 unit SQ QPM 12/16/16 [History] Lisinopril [Zestril] 20 mg PO BID 12/16/16 [History] Loratadine [Allergy Relief] 10 mg PO DAILY 12/16/16 [History] Metoprolol [Lopressor] 100 mg PO BID 12/16/16 [History] Mometasone Furoate [Nasonex] 2 spr NS DAILY 12/16/16 [History] Multivit-Min/FA/Lycopen/Lutein [A Thru Z Select Multivit Tab] 1 tab PO DAILY [History] Potassium Chloride [Klor-Con 10] 20 meq PO BID 12/16/16 [History] Pravastatin Sodium [Pravachol] 20 mg PO DAILY 12/16/16 [History] Ranitidine HCl [Zantac] 300 mg PO QPM 12/16/16 [History] Sildenafil Citrate [Viagra] 50 mg PO AD PRN 12/16/16 [History] Terazosin [Hytrin] 5 mg PO HS 12/16/16 [History] Testosterone Cypionate [Depo-Testosterone] 200 mg IM Q2W 12/16/16 [History] Warfarin [Coumadin] 5 mg PO SUMOTUWEFRSA 12/16/16 [History] Warfarin [Coumadin] 7.5 mg PO TH 12/16/16 [History] glipiZIDE [Glipizide] 10 mg PO DAILY 12/16/16 [History] metFORMIN [Glucophage] 500 mg PO BIDWM 12/16/16 [History] Allergies/Adverse Reactions: 3 Allergy/AdvReac Type Severity Reaction Status Date / Time No Known Allergies Allergy Verified 12/16/16 13:07 Procedures/tests Complete & Pending: Procedures Performed prior 72 hours Category Date Time Status EV echocardiogram Routine Y 12/17/16 17:03 Completed Chest X-Ray 12/16/16 17:14 IMPRESSION: Mild cardiomegaly with mild left lung base atelectasis. D/ / Adam Valencia MD / Adam Valencia MD Interpreting Provider: Adam Valencia MD Date of admission: 12/16/16 15:49 Primary care physician: PCP DC Consults: Cardiology Discharging clinician: Beth Choi Anticipated date of discharge: 12/17/16 - Patient Status Disposition: Home, Self-Care Condition: Fair Overall status at discharge: patient is progressing back to baseline - Discharge Instructions Instructions: Warfarin (By mouth), Influenza Virus Vaccine (Injection), Myocardial Infarction (DC), Atrial Fibrillation (DC), Chronic Hypertension (DC) Follow Up With: [facility] [Primary Care Provider] - Additional Instructions: Please follow up with your primary care provider as scheduled. Please follow up with your block bolter mule operator, Dr. Scott, as recommended by our cardiology team for outpatient evaluation and stress test. We discussed the importance of lifestyle changes, such as weight loss, to decrease your risk of cardiovascular heart disease-related complications. Please proceed to the emergency room promptly in event of chest pain, shortness of breath, fever or new onset of symptoms. - Diet and Activity Activity: increase activity as tolerated Diet: low fat, low cholesterol, low salt diet Interval History: No acute events today. No chest pain. Patient refused LHC, per cardiology.Requests to leave. Cardiology counseled pt to follow up with patient' s block bolter mule operator, Dr. Scott. Hospital course: Mr. Ramsay is a 71 year old male with a history of atrial fibrillation on coumadin, HTN, HLD, DM type II, FRED on BIPAP, and morbid obesity who presented to the DC with dizziness. He was transferred from the the DC when he was reported to have elevated troponin. He reported a normal echo in July. DC records reviewed. Troponin 0.43. D-dimer was negative. WBC/ RBC/ HGB in normal limits. PLT 129. CT head negative for acute findings. Cardiology was consulted. The patient denies chest pain or palpitations. Denies SOB, weight gain, or orthopnea. Patient underwent TTE and was placed on telemetry to assess for cardiac cause. ECHO returned with LVEF of 50%. CXR demonstrated mild cardiomegaly with mild left lung base atelectasis. The patient declined a recommendation by cardiology for left heart catherization and requested to leave shortly after consult. Cardiology counseled pt to follow up with his primary block bolter mule operator, Dr. Scott, in [place] as outpatient. - Time Spent with Patient Total time spent providing and/or coordinating discharge services: - Constitutional Vitals: Temp Pulse Resp BP Pulse Ox 98.2 F 88 19 164/89 90 12/17/16 15:57 12/17/16 15:57 12/17/16 15:57 12/17/16 15:57 12/17/16 15:57 General appearance: Present: A&O X 3, pleasant, no acute distress, obese - Head Head exam: Present: atraumatic, normocephalic - Respiratory Respiratory exam: Present: CTAB. Absent: accessory muscle use, rales, rhonchi, wheezes - Cardiovascular Cardiovascular exam: Present: distant heart sounds, +S1, +S2. Absent: bradycardia, gallop, rubs, systolic murmur, tachycardia - GI/Abdominal GI/Abdominal exam: Present: normal bowel sounds, soft, no peritoneal signs. Absent: distended, tenderness - VTE Documentation of Mechanical Device: Graduated compression elastic hosiery <Maikel León P - Last Filed: 12/17/16 17:28> Date of Encounter: 12/17/16 Procedures/tests Complete & Pending: Procedures Performed prior 72 hours Category Date Time Status EV echocardiogram Routine Y 12/17/16 17:03 Completed Date of admission: 12/16/16 15:49 Primary care physician: PCP [facility] course: Mr. Ramsay is a 71 year old male - Time Spent with Patient Total time spent providing and/or coordinating discharge services: - Constitutional Vitals: Temp Pulse Resp BP Pulse Ox 98.2 F 88 19 164/89 90 12/17/16 15:57 12/17/16 15:57 12/17/16 15:57 12/17/16 15:57 12/17/16 15:57 - Attending Attestation I examined this patient and my medical decision-making was reviewed with the Resident Physician. I agree with the documented findings, disposition and treatment plan as described except to the extent set forth below.
[2016-12-17] MEDS ORDERED: FLUARIX QUAD 2017-18 36MOS UP/PF 0.5 ML SYRINGE IM ONE (17:02)
[2016-12-17] MEDS ORDERED: Famotidine 20 MG TABLET PO SCH (20:00)
== END 2016-12-17 17:27 | disposition home or self-care (01) | DRG 149 ==
LOC: EMEROO 13:03 → 2ANU 13:03
PROVIDERS: ADMIT Internal Medicine; ATTEND Internal Medicine